=== PATIENT | female | born 1955 | race Caucasian/White ===

== ENCOUNTER 2023-10-22 14:19 | Inpatient (IN) | payer OTHER, MEDICAID ==
[~2023-10-22] VITALS: Ht 162.6 cm; Wt 78.0 kg
[2023-10-22 15:09] LABS: Hemoglobin 12.1 g/dL (12.2-16.2); Monocytes # (auto) 1.8 10 ^3/uL (0-1.3); Red Cell Distribution Width 14.4 % (11.8-14.3); White Blood Cell 22.4 10^3/uL (4.4-10.8)
[2023-10-22 15:10] LABS: Basophils # (auto) 0.1 10 ^3/uL (0-0.2); Basophils % (auto) 0.4 % (0.0-2.0); Eosinophils # (auto) 1.1 10 ^3/uL (0-0.8); Eosinophils % (auto) 4.8 % (0.0-7.0); Lymphocytes # (auto) 0.6 10 ^3/uL (0.4-5.4); Lymphocytes % (auto) 2.9 % (10.0-50.0); Mean Corpuscular Hemoglobin 33.5 pg (28.0-32.0); Monocytes % (auto) 7.9 % (0.0-12.0); Neutrophils # (auto) 18.8 10 ^3/uL (1.6-8.6); Red Blood Cells 3.61 10^6/uL (4.0-5.20)
[2023-10-22 15:12] LABS: Chloride 110 mmol/L (98-107); Potassium 4.7 mmol/L (3.5-5.1); Sodium 132 mmol/L (136-145)
[2023-10-22 15:13] LABS: Anion Gap 11 (5-15); Calcium 8.6 mg/dL (8.5-10.1); Carbon Dioxide 11 mmol/L (20-30)
[2023-10-22 15:18] LABS: BUN/Creatinine Ratio 17.1 (10.0-20.0); Blood Urea Nitrogen 40 mg/dL (9-23); Glucose 219 mg/dL (74-106)
[2023-10-22 15:38] VITALS: PULSE 83; RESP 16; O2SAT 95
[2023-10-22] MEDS ORDERED: DEXTROSE (50%) 50ML SYRG IV PRN (15:45)
[2023-10-22] MEDS ORDERED: DOCUSATE SOD 100 MG CAP PO PRN (15:45)
[2023-10-22] MEDS ORDERED: NITROGLYCERIN 0.4 MG SL TAB SL PRN (15:45)
[2023-10-22] MEDS ORDERED: MORPHINE SULFATE INJ 2 MG/ml SYRG IV PRN (15:45)
[2023-10-22] MEDS ORDERED: ONDANSETRON HCL 4 MG/2 ML VIAL IV PRN (15:45)
[2023-10-22] MEDS: cefTRIAXone 1GM/50ML D5W 50 ML IV ONE (15:53)
[2023-10-22] MEDS: SODIUM CHLORIDE 0.9% 1,000 ML IV ONE ×2 (15:53→16:45)
[2023-10-22] MEDS ORDERED: LISI10TA34 PO (15:59)
[2023-10-22] MEDS ORDERED: EMPA1TAB3 PO (15:59)
[2023-10-22] MEDS ORDERED: ASPI81CH59 PO (15:59)
[2023-10-22] MEDS ORDERED: GABA-1250 PO (15:59)
[2023-10-22] MEDS ORDERED: BUPR-349 PO (15:59)
[2023-10-22] MEDS: VANCOMYCIN 1GM/200ML 200 ML IV ONE (16:14)
[2023-10-22] MEDS ORDERED: hydrALAZINE HCL 20 MG/ML VL IV PRN (16:15)
[2023-10-22 16:41] LABS: Bilirubin, Total 0.3 mg/dL (0.2-1.0)
[2023-10-22] MEDS: ACCU-CHEK COMFORT CURVE STRIP VI SCH (17:26)
[2023-10-22] MEDS: InsuLIN REG 1unit/0.01ml Soln (100units/ml) SC SCH (17:31)
[2023-10-22 17:40] LABS: Urine Bacteria FEW /hpf (None Seen); Urine Blood 1+ /uL (Negative); Urine Budding Yeast FEW /hpf (None Seen); Urine Clarity HAZY (Clear); Urine Color Brown (Yellow); Urine Protein, UAD 1+ (Negative); Urine Urobilinogen Normal (Negative); Urine WBC 494 /hpf (0 - 5); Urine WBC Clumps PRESENT /hpf (None Seen)
[2023-10-22 17:40] LABS: COVID19 ANTIGEN SOFIA FIA NEGATIVE (NEGATIVE)
[2023-10-22] MEDS: ACETAMINOPHEN 325 MG TAB PO PRN (18:16)
[2023-10-22] MEDS: SODIUM CHLORIDE 0.9% 1,000 ML IV SCH (18:17)
[2023-10-22] MEDS: SODIUM CHLORIDE 0.9% 500 ML IV ONE (21:15)
[2023-10-22] MEDS: ALBUMIN 5% 250 ML IV ONE (21:15)
[2023-10-22 22:30] VITALS: PULSE 110; RESP 14; O2SAT 95
[2023-10-22] MEDS: PHENYLEPHRINE IV 250 ML IV SCH (22:59)
[2023-10-23 05:30] LABS: Hemoglobin 12.7 g/dL (12.2-16.2)
[2023-10-23 05:35] LABS: Hematocrit 39.4 % (36.0-46.0); Mean Corpuscular Hemoglobin 33.7 pg (28.0-32.0); Mean Corpuscular Hgb Conc. 32.3 g/dL (32.0-36.0); Mean Corpuscular Volume 104.3 fL (80.0-100.0); Red Blood Cells 3.78 10^6/uL (4.0-5.20); White Blood Cell 28.7 10^3/uL (4.4-10.8)
[2023-10-23 05:46] LABS: Basophils % (manual) 0 (0.0-2.0); Blast Cells 0; Eosinophils % (manual) 0 (0-7); Lymphocytes % (manual) 0 (10.0-50.0); Myelocytes % 0; Promyelocytes % 0; Reactive Lymphocytes 0
[2023-10-23 05:51] LABS: Alanine Aminotransferase 27 U/L (7-40); Albumin 3.6 g/dL (3.2-4.8); Alkaline Phosphatase 230 U/L (46-116); Anion Gap 11.00001 (5-15); Aspartate Aminotransferase 39 U/L (13-40); BUN/Creatinine Ratio 15.9 (10.0-20.0); Calcium 8.6 mg/dL (8.5-10.1); Chloride 119 mmol/L (98-107); Cholesterol 115 mg/dL (< 200); Glucose 91 mg/dL (74-106); HDL Cholesterol 24 mg/dL (40-59); LDL Cholesterol 41 mg/dL (< 100); Potassium 4.1 mmol/L (3.5-5.1); Sodium 140 mmol/L (136-145); Triglycerides 209 mg/dL (< 150)
[2023-10-23 05:52] LABS: Bilirubin, Total 0.4 mg/dL (0.2-1.0); Total Protein 6.1 g/dL (5.7-8.2)
[2023-10-23 06:02] LABS: Blood Urea Nitrogen 28 mg/dL (9-23)
[2023-10-23 06:03] LABS: Carbon Dioxide < 10 mmol/L (20-30)
[2023-10-23] MEDS ORDERED: VANCOMYCIN PER PHARMACY 0 MG IV SCH (06:30)
[2023-10-23] MEDS: VANCOMYCIN 1GM/200ML 200 ML IV ONE (08:09)
[2023-10-23 08:22] LABS: Base Excess -16.5 mmol/L (-2.0-2.0)
[2023-10-23] MEDS: cefTRIAXone 1GM/50ML D5W 50 ML IV SCH (09:07)
[2023-10-23 09:35] LABS: Band Neutrophils % (manual) 40; Metamyelocytes % 1; Monocytes % (manual) 7 (0-12)
[2023-10-23 09:36] LABS: Platelet Estimate Adequate
[2023-10-23] MEDS ORDERED: HYDROCORTISONE SOD SUCC 100 MG/2ML INJ VIAL IV SCH (10:00)
[2023-10-23] MEDS: CEFEPIME 2GM/50ML NS 50 ML IV SCH (10:26)
[2023-10-23] MEDS: SODIUM BICARB 50mEq/50ml Vial 100 ML in D5W 5% 1,000 ML IV SCH (12:25)
[2023-10-23 14:52] LABS: Chloride 117 mmol/L (98-107); Sodium 141 mmol/L (136-145)
[2023-10-23 14:53] LABS: Anion Gap 11 (5-15); Calcium 8.6 mg/dL (8.5-10.1); Carbon Dioxide 13 mmol/L (20-30)
[2023-10-23 14:58] LABS: BUN/Creatinine Ratio 21.1 (10.0-20.0); Blood Urea Nitrogen 31 mg/dL (9-23); Glucose 149 mg/dL (74-106)
[2023-10-23 17:23] VITALS: BP 113/68; PULSE 92; RESP 18; TEMP 98.6; O2SAT 97
[2023-10-23 17:50] VITALS: BP 113/68; PULSE 92; RESP 18; TEMP 98.6; O2SAT 97
[2023-10-23 20:00] VITALS: PULSE 109; PULSE 98; RESP 18; O2SAT 97
[2023-10-23 23:09] VITALS: BP 131/72; PULSE 95; RESP 20; TEMP 98.5; O2SAT 93
[2023-10-24] VITALS (7 sets, daily range): BP systolic 109–131; BP diastolic 61–86; PULSE 80–109; RESP 16–20; TEMP 98–99.5; O2SAT 93–97
[2023-10-24 06:10] LABS: Basophils # (auto) 0 10 ^3/uL (0-0.2); Basophils % (auto) 0.1 % (0.0-2.0); Eosinophils # (auto) 0.2 10 ^3/uL (0-0.8); Hematocrit 35.2 % (36.0-46.0); Hemoglobin 11.5 g/dL (12.2-16.2); Lymphocytes # (auto) 0.8 10 ^3/uL (0.4-5.4); Mean Corpuscular Hemoglobin 32.8 pg (28.0-32.0); Mean Corpuscular Hgb Conc. 32.7 g/dL (32.0-36.0); Mean Corpuscular Volume 100.3 fL (80.0-100.0); Monocytes # (auto) 1.3 10 ^3/uL (0-1.3); Monocytes % (auto) 6.6 % (0.0-12.0); Neutrophils # (auto) 18.1 10 ^3/uL (1.6-8.6); Neutrophils % (auto) 88.3 % (37.0-80.0); Red Blood Cells 3.51 10^6/uL (4.0-5.20); Red Cell Distribution Width 13.9 % (11.8-14.3); White Blood Cell 20.5 10^3/uL (4.4-10.8)
[2023-10-24 06:15] LABS: Chloride 116 mmol/L (98-107); Potassium 3.1 mmol/L (3.5-5.1); Sodium 141 mmol/L (136-145)
[2023-10-24 06:16] LABS: Anion Gap 12 (5-15); Carbon Dioxide 13 mmol/L (20-30)
[2023-10-24 06:17] LABS: Calcium 8.3 mg/dL (8.7-10.4)
[2023-10-24 06:21] LABS: Glucose 190 mg/dL (74-106)
[2023-10-24 06:22] LABS: BUN/Creatinine Ratio 23.8 (10.0-20.0); Blood Urea Nitrogen 29 mg/dL (9-23)
[2023-10-24 11:39] LABS: Magnesium 1.7 mg/dL (1.6-2.6)
[2023-10-24 11:41] LABS: Phosphorus 2.7 mg/dL (2.4-5.1)
[2023-10-24] MEDS: POTASSIUM EFFERVESENT TAB 25 MEQ PO ONE (12:52)
[2023-10-24] MEDS: HYDROcodone-ACET 5/325MG TAB PO PRN (12:52)
[2023-10-25] VITALS (8 sets, daily range): BP systolic 113–143; BP diastolic 69–82; PULSE 60–96; RESP 15–18; TEMP 97.6–98.9; O2SAT 92–97
[2023-10-25 06:30] LABS: Chloride 110 mmol/L (98-107); Potassium 3.4 mmol/L (3.5-5.1); Sodium 137 mmol/L (136-145)
[2023-10-25 06:31] LABS: Anion Gap 10 (5-15); Calcium 7.9 mg/dL (8.7-10.4); Carbon Dioxide 17 mmol/L (20-30)
[2023-10-25 06:36] LABS: BUN/Creatinine Ratio 21.6 (10.0-20.0); Blood Urea Nitrogen 22 mg/dL (9-23); Glucose 309 mg/dL (74-106)
[2023-10-25 06:37] LABS: Basophils # (auto) 0.1 10 ^3/uL (0-0.2); Hemoglobin 11.4 g/dL (12.2-16.2); Magnesium 1.7 mg/dL (1.6-2.6); Monocytes # (auto) 1.7 10 ^3/uL (0-1.3); Monocytes % (auto) 9.9 % (0.0-12.0); White Blood Cell 17.3 10^3/uL (4.4-10.8)
[2023-10-25 06:41] LABS: Basophils % (auto) 0.6 % (0.0-2.0); Eosinophils # (auto) 0.3 10 ^3/uL (0-0.8); Eosinophils % (auto) 1.6 % (0.0-7.0); Lymphocytes # (auto) 1.4 10 ^3/uL (0.4-5.4); Mean Corpuscular Hemoglobin 33.2 pg (28.0-32.0); Mean Corpuscular Hgb Conc. 32.7 g/dL (32.0-36.0); Mean Corpuscular Volume 101.6 fL (80.0-100.0); Neutrophils # (auto) 13.8 10 ^3/uL (1.6-8.6); Neutrophils % (auto) 79.9 % (37.0-80.0); Nucleated Red Blood Cells % 0.2 %; Red Blood Cells 3.44 10^6/uL (4.0-5.20)
[2023-10-25] MEDS: CHOLECALCIFEROL (VITD3) 2,000 UNIT CAP/TAB PO SCH (08:28)
[2023-10-25] MEDS: SODIUM BICARB 50mEq/50ml Vial 100 ML in D5W 5% 1,000 ML IV SCH (09:37)
[2023-10-25] MEDS: POTASSIUM EFFERVESENT TAB 25 MEQ PO ONE (10:30)
[2023-10-25] MEDS ORDERED: DEXTROSE (50%) 50ML SYRG IV PRN (12:00)
[2023-10-25] MEDS: InsuLIN REG 1unit/0.01ml Soln (100units/ml) SC SCH ×2 (17:28→23:00)
[2023-10-25] MEDS: ACCU-CHEK COMFORT CURVE STRIP VI SCH (17:28)
[2023-10-26] VITALS (7 sets, daily range): BP systolic 120–146; BP diastolic 66–88; PULSE 66–76; RESP 18–20; TEMP 97.6–99.1; O2SAT 92–96
[2023-10-26 06:36] LABS: Anion Gap 10 (5-15); Carbon Dioxide 22 mmol/L (20-30); Chloride 110 mmol/L (98-107); Potassium 3.2 mmol/L (3.5-5.1); Sodium 142 mmol/L (136-145)
[2023-10-26 06:38] LABS: Calcium 8.1 mg/dL (8.5-10.1)
[2023-10-26 06:43] LABS: BUN/Creatinine Ratio 29.5 (10.0-20.0); Blood Urea Nitrogen 23 mg/dL (9-23); Glucose 203 mg/dL (74-106)
[2023-10-26 07:00] LABS: Hematocrit 34.5 % (36.0-46.0); Hemoglobin 11.4 g/dL (12.2-16.2); Mean Corpuscular Volume 100.1 fL (80.0-100.0); Red Blood Cells 3.45 10^6/uL (4.0-5.20); Red Cell Distribution Width 13.9 % (11.8-14.3); White Blood Cell 15.2 10^3/uL (4.4-10.8)
[2023-10-26 07:10] LABS: Basophils % (manual) 0 (0.0-2.0); Blast Cells 0; Metamyelocytes % 0; Myelocytes % 0; Promyelocytes % 0; Reactive Lymphocytes 0
[2023-10-26 08:30] LABS: Band Neutrophils % (manual) 3; Eosinophils % (manual) 3 (0-7); Lymphocytes % (manual) 9 (10.0-50.0); Monocytes % (manual) 10 (0-12)
[2023-10-26 08:31] LABS: Macrocytosis Slight; Platelet Estimate Adequate
[2023-10-26] MEDS: POTASSIUM EFFERVESENT TAB 25 MEQ PO ONE (09:58)
[2023-10-26] MEDS: MAGNESIUM SULFATE 1GM/100ML 100 ML IV SCH (09:59)
[2023-10-26] MEDS: INSULIN LANTUS (GLARGINE) 1 /0.01ml (100units/ml) SC SCH (21:37)
[2023-10-27] VITALS (7 sets, daily range): BP systolic 127–144; BP diastolic 77–84; PULSE 63–70; RESP 18; TEMP 97.5–98.4; O2SAT 94–98
[2023-10-27 06:09] LABS: Hematocrit 31.1 % (36.0-46.0); Hemoglobin 10.5 g/dL (12.2-16.2); Mean Corpuscular Hemoglobin 33.7 pg (28.0-32.0); Mean Corpuscular Hgb Conc. 33.9 g/dL (32.0-36.0); Mean Corpuscular Volume 99.4 fL (80.0-100.0); Red Blood Cells 3.13 10^6/uL (4.0-5.20); Red Cell Distribution Width 13.5 % (11.8-14.3); White Blood Cell 12.7 10^3/uL (4.4-10.8)
[2023-10-27 06:15] LABS: Anion Gap 9 (5-15); Carbon Dioxide 22 mmol/L (20-30); Chloride 109 mmol/L (98-107); Potassium 3.8 mmol/L (3.5-5.1); Sodium 140 mmol/L (136-145)
[2023-10-27 06:16] LABS: Band Neutrophils % (manual) 0; Basophils % (manual) 0 (0.0-2.0); Blast Cells 0; Metamyelocytes % 0; Myelocytes % 0; Promyelocytes % 0; Reactive Lymphocytes 0
[2023-10-27 06:21] LABS: BUN/Creatinine Ratio 28.2 (10.0-20.0); Blood Urea Nitrogen 22 mg/dL (9-23); Glucose 192 mg/dL (74-106)
[2023-10-27 07:49] LABS: Eosinophils % (manual) 2 (0-7); Lymphocytes % (manual) 18 (10.0-50.0); Monocytes % (manual) 4 (0-12); Platelet Estimate Adequate
[2023-10-27 07:50] LABS: RBC Morphology Normal
[2023-10-28] VITALS (7 sets, daily range): BP systolic 115–150; BP diastolic 65–83; PULSE 55–81; RESP 16–20; TEMP 97.6–98.7; O2SAT 0–96
[2023-10-28 05:39] LABS: Hematocrit 32.5 % (36.0-46.0); Hemoglobin 10.6 g/dL (12.2-16.2); Mean Corpuscular Hemoglobin 32.6 pg (28.0-32.0); Mean Corpuscular Hgb Conc. 32.5 g/dL (32.0-36.0); Mean Corpuscular Volume 100.1 fL (80.0-100.0); Red Blood Cells 3.25 10^6/uL (4.0-5.20); Red Cell Distribution Width 13.6 % (11.8-14.3); White Blood Cell 12.3 10^3/uL (4.4-10.8)
[2023-10-28 05:49] LABS: Basophils % (manual) 0 (0.0-2.0); Blast Cells 0; Metamyelocytes % 0; Myelocytes % 0; Promyelocytes % 0; Reactive Lymphocytes 0
[2023-10-28 05:54] LABS: Chloride 110 mmol/L (98-107); Potassium 3.6 mmol/L (3.5-5.1); Sodium 140 mmol/L (136-145)
[2023-10-28 05:55] LABS: Anion Gap 7 (5-15); Calcium 7.5 mg/dL (8.7-10.4); Carbon Dioxide 23 mmol/L (20-30)
[2023-10-28 06:00] LABS: BUN/Creatinine Ratio 20.2 (10.0-20.0); Blood Urea Nitrogen 17 mg/dL (9-23); Glucose 228 mg/dL (74-106)
[2023-10-28 08:10] LABS: Band Neutrophils % (manual) 3; Eosinophils % (manual) 1 (0-7); Lymphocytes % (manual) 12 (10.0-50.0); Monocytes % (manual) 7 (0-12)
[2023-10-28 08:11] LABS: Macrocytosis Slight; Platelet Estimate Adequate
[2023-10-28] MEDS: buPROPion HCL 100 MG TAB PO SCH (10:04)
[2023-10-28] MEDS: INSULIN LANTUS (GLARGINE) 1 /0.01ml (100units/ml) SC SCH (17:25)
[2023-10-29 04:00] VITALS: BP 131/77; PULSE 60; RESP 20; TEMP 98.1; O2SAT 95
[2023-10-29 08:00] VITALS: RESP 18; O2SAT 0
[2023-10-29 09:00] VITALS: BP_SYST 118; BP_SYST 134; BP_DIAS 62; BP_DIAS 73; PULSE 62; PULSE 94; RESP 16; RESP 18; RESP 90; TEMP 98.4; TEMP 98.5; TEMP 98.6; O2SAT 90; O2SAT 93
[2023-10-29 13:00] VITALS: BP 136/77; PULSE 60; RESP 18; TEMP 98.7; O2SAT 97
[2023-10-29] MEDS ORDERED: INSLANTI SC ×2 (14:41→16:22)
[2023-10-29] MEDS ORDERED: CIPR250T3 PO ×2 (14:41→16:22)
[2023-10-29 17:00] VITALS: BP 146/82; PULSE 60; RESP 18; TEMP 98.6; O2SAT 97
== END 2023-10-29 18:15 | disposition home or self-care (01) | DRG 871 ==
LOC: ER 14:19 → TELE 15:59 → TELE-EAST 10-23 17:37 → EAST 10-26 01:01
PROVIDERS: ADMIT Nurse Practitioner Family; ATTEND Nurse Practitioner Acute Care
DX: A41.9 Sepsis, unspecified organism (principal); N17.0 Acute kidney failure with tubular necrosis; R65.21 Severe sepsis with septic shock; E87.20 Acidosis, unspecified; F32.A Depression, unspecified; E11.40 Type 2 diabetes mellitus with diabetic neuropathy, unspecified; Z96.642 Presence of left artificial hip joint; Z20.822 Contact with and (suspected) exposure to COVID-19; E11.65 Type 2 diabetes mellitus with hyperglycemia; K52.9 Noninfective gastroenteritis and colitis, unspecified; E86.0 Dehydration; I12.9 Hypertensive chronic kidney disease with stage 1 through stage 4 chronic kidney disease, or unspecified chronic kidney disease; E11.22 Type 2 diabetes mellitus with diabetic chronic kidney disease; N18.9 Chronic kidney disease, unspecified; N30.90 Cystitis, unspecified without hematuria; E11.649 Type 2 diabetes mellitus with hypoglycemia without coma; E78.5 Hyperlipidemia, unspecified; E55.9 Vitamin D deficiency, unspecified; E87.6 Hypokalemia; B96.20 Unspecified Escherichia coli [E. coli] as the cause of diseases classified elsewhere; D64.9 Anemia, unspecified; Z83.3 Family history of diabetes mellitus; Z79.4 Long term (current) use of insulin
CPT/HCPCS: 36415; 36600; 70450; 71046; 76775; 80048; 80053; 80061; 80202; 81001; 82247; 82306; 82805; 82962; 83036; 83605; 83735; 83935; 83970; 84075; 84100; 84300; 84443; 84450; 84460; 85007; 85025; 85027; 87040; 87045; 87077; 87086; 87177; 87186; 87426; 93005; 96365; 97110; 97116; 97163; 97530; G0378; J0692; J1815

== ENCOUNTER 2024-07-07 17:07 | Inpatient (IN) | payer OTHER, MEDICAID ==
[~2024-07-07] VITALS: Ht 162.6 cm; Wt 63.3 kg
[~2024-07-07 17:07] MED LIST: ASPI81CH59 PO; BUPR-349 PO; CIPR250T3 PO; EMPA1TAB3 PO; GABA-1250 PO; INSLANTI SC; LISI10TA34 PO
--- NOTE | 2024-07-07 17:21 | ECG ---
[facility] Test Date: 2024-07-07 Test Time: 17:16:12 Pat Name: UMU YEUNG Department: ER Room: 0284T Gender: F Shade Cutter: MARILEE : 1955 Requested By: MARLO PALACIOS Order Number: [id number] Reading MD: Duke Marquez Measurements Intervals [place] Rate: 94 P: 56 CT: 165 QRS: 57 QRSD: 84 T: -12 QT: 353 QTc: 442 Interpretive Statements Sinus rhythm Borderline T abnormalities, diffuse leads Electronically Signed On 07-11-2024 11:14:55 PST by Duke Marquez Please click the below link to view image of tracing.
--- NOTE | 2024-07-07 17:37 | ED.PDOC ---
HPI (NEURO) HPI Comments 68y F who presents to the ED for chief complaint of dizziness. Pt states she has been having dizziness with associated generalized weakness for the past 2 days. Pt states she has had multiple falls after getting dizzy from sitting to standing position. Pt denies having any loss of consciousness and is alert and oriented x 4 and able to answer all questions at this time. Pt states she has also been having cramping pain radiating from neck to her lower back and down her bilateral legs. Pt states she has these symptoms 1 years prior and states was diagnosed with UTI and treated. Pt has noted stable vitals in the ED but has noted Accu check of 216 in the ED. Pt denies any other symptoms at this time. Chief Complaint: Dizziness Time Seen by MD: 17:33 Primary Care Provider: ALFRED Reviewed Notes: Medications, Allergies Information Source: Patient Mode of Arrival: Wheelchair Brought in by: self Severity: Moderate Dizziness/Weakness Severity: Does not affect activitie Headache Severity: None Timing: Hours Duration: Since onset Prehospital treatment: None Weakness Location: Generalized Onset: At rest Circumstances: Spontaneous Symptoms: None History of: DM, Hypertension Modifying factors: Change in position Associated Signs and Symptoms: Weakness Past Medical History PAST MEDICAL HISTORY: Arthritis, DM, HTN Surgical History: Tubal Ligation CAMPUS COORDINATOR History: Denies all CAMPUS COORDINATOR Hx Family History Family History: Family hx of DM Social History Smoker: Non-Smoker Alcohol: Denies ETOH Use Drugs: Denies Drug Use Lives In: Home Constitutional: denies: chills, diaphoresis, fatigue, fever, malaise, sweats, weakness, others EENTM: denies: blurred vision, double vision, ear bleeding, ear discharge, ear drainage, ear pain, ear ringing, eye pain, eye redness, hearing loss, mouth pain, mouth swelling, nasal discharge, nose bleeding, nose congestion, nose pain, photophobia, tearing, throat pain, throat swelling, voice changes, others Respiratory: denies: cough, hemoptysis, orthopnea, SOB at rest, shortness of breath, SOB with excertion, stridor, wheezing, others Cardiovascular: denies: chest pain, dizzy spells, diaphoresis, Dyspnea on exertion, edema, irregular heart beat, left arm pain, lightheadedness, palpitations, PND, syncope, others Gastrointestinal: denies: abdomen distended, abdominal pain, blood streaked bowels, constipated, diarrhea, dysphagia, difficulty swallowing, hematemesis, melena, nausea, poor appetite, poor fluid intake, rectal bleeding, rectal pain, vomiting, others Genitourinary: denies: abnormal vagina bleeding, burning, dyspareunia, dysuria, flank pain, frequency, hematuria, incontinence, pain, , vagina discharge, urgency, others Neurological: reports: dizziness, weakness; denies: fainting, headache, left sided numbness, left sided weakness, numbness, paresthesia, pre-existing defic it, right sided numbness, right sided weakness, seizure, speech problems, tingling, tremors, others Musculoskeletal: denies: back pain, gout, joint pain, joint swelling, muscle pain, muscle stiffness, neck pain, others Integumetry: denies: bruises, change in color, change in hair/nails, dryness, laceration, lesions, lumps, rash, wounds, others Allergic/Immunocompromised: denies: Difficulty Healing, Frequent Infections, Hives, Itching, others Hematologic/Lymphatic: denies: anemia, blood clots, easy bleeding, easy bruising, swollen glands, others Psychiatric: denies: anxiety, bipolar disorder, depression, hopeless, panic disorder, schizophrenia, sleepless, suicidal, others All Other Systems: Reviewed and Negative Physical Exam General Appearance: Moderate Distress HEENT: Normal ENT Inspection, Pharynx Normal, TMs Normal Neck: Full Range of Motion, Non-Tender, Normal, Normal Inspection Respiratory: Chest Non-Tender, Lungs Clear, No Accessory Muscle Use, No Respiratory Distress, Normal Breath Sounds Cardiovascular: No Edema, No JVD, No Murmur, No Gallop, Normal Peripheral Pulses, Regular Rate/Rhythm Breast Exam: Deferred Gastrointestinal: No Organomegaly, Non Tender, No Pulsatile Mass, Normal Bowel Sounds, Soft Genitalia: Deferred Pelvic: Deferred Rectal: Deferred Extremities: No calf tenderness, Normal capillary refill, Normal inspection, Normal range of motion, Non-tender, No pedal edema Musculoskeletal : Apperance: Normal Neurologic: Alert, logistics/shipper II-XII nml as Tested, No Motor Deficits, Normal Affect, Normal Mood, No Sensory Deficits Cerebellar Function: Normal Reflexes: Normal Skin: Dry, Normal Color, Warm Lymphatic: No Adenopathy Was a procedure done? Was a procedure done?: No Differential Diagnosis (SZ) Seizure: N/A General Weakness: Anemia, Dehydration, Electrolyte imbalance, Hypoglycemia, Hypotension, TIA, Vertigo: central, Vertigo: peripheral, Vestibular neuronitis, Other (vasovagal syncope, ) X-Ray, Labs, Meds, VS Vital Signs Date Time Temp Pulse Resp B/P (MAP) Pulse Ox O2 Delivery O2 Flow Rate FiO2 07/07/24 20:19 91 15 98/70 (79) 98 07/07/24 18:13 98.6 93 16 92/61 (71) 96 98.6 07/07/24 18:13 90 16 95 Room Air* 0 21 07/07/24 17:21 97.7 92 18 94/61 (72) 93 07/07/24 17:16 94 Lab Test 07/07/24 19:27 07/07/24 17:38 07/07/24 17:18 Range/Units Troponin I High Sensitivity 89 *H 99 *H </=34 ng/L White Blood Count 7.9 4.4-10.8 10^3/uL Red Blood Count 4.00 4.0-5.20 10^6/uL Hemoglobin 13.5 12.2-16.2 g/dL Hematocrit 40.6 36.0-46.0 % Mean Corpuscular Volume 101.6 H 80.0-100.0 fL Mean Corpuscular Hemoglobin 33.8 H 28.0-32.0 pg Mean Corpuscular Hemoglobin Concent 33.2 32.0-36.0 g/dL Red Cell Distribution Width 13.7 11.8-14.3 % Platelet Count 241 140-450 10^3/uL Mean Platelet Volume 8.3 6.9-10.8 fL Neutrophils (%) (Auto) 81.8 H 37.0-80.0 % Lymphocytes (%) (Auto) 9.9 L 10.0-50.0 % Monocytes (%) (Auto) 7.7 0.0-12.0 % Eosinophils (%) (Auto) 0.3 0.0-7.0 % Basophils (%) (Auto) 0.3 0.0-2.0 % Neutrophils # (Auto) 6.4 1.6-8.6 10 ^3/uL Lymphocytes # (Auto) 0.8 0.4-5.4 10 ^3/uL Monocytes # (Auto) 0.6 0-1.3 10 ^3/uL Eosinophils # (Auto) 0 0-0.8 10 ^3/uL Basophils # (Auto) 0 0-0.2 10 ^3/uL Nucleated Red Blood Cells 0.0 % Sodium Level 137 136-145 mmol/L Potassium Level 3.2 L 3.5-5.1 mmol/L Chloride Level 110 H 98-107 mmol/L Carbon Dioxide Level 18 L 20-31 mmol/L Anion Gap 9 5-15 Blood Urea Nitrogen 20 9-23 mg/dL Creatinine 1.13 H 0.550-1.02 mg/dL Glomerular Filtration Rate Calc 53 >90 mL/min BUN/Creatinine Ratio 17.7 10.0-20.0 Serum Glucose 225 H 74-106 mg/dL Calcium Level 9.3 8.7-10.4 mg/dL POC Glucose 216 H 70-106 mg/dl Current Medications Medications (Trade) Dose Ordered Sig/Christiano Route Start Time Stop Time Status Last Admin Sodium Chloride 500 ml @ 500 mls/hr Q1H ONCE IV 07/07/24 17:30 07/07/24 18:29 DC 07/07/24 18:27 IV Hep-Lock was established The patient was given a 500 cc bolus of normal saline The CBC and chemistry panel are within normal limits except for hypokalemia at 3.2 The patient was being placed on potassium IV piggyback The patient was being admitted at this time. The patient's troponin level was 99 and then went down to 89 on the 2nd troponin The patient was being admitted at this time Time of 1ST Reevaluation: 18:10 Reevaluation 1ST: Unchanged Patient Education/Counseling: Diagnosis, Treatment, Prognosis Family Education/Counseling: No Family Present Departure 1 Departure Time of Disposition: 19:39 Impression: Primary Impression: Dizziness Additional Impressions: Hypokalemia Generalized weakness Elevated troponin Disposition: ADMITTED INPATIENT Admit to: Tele Condition: Fair Critical Care Note Critical Care Time?: Yes (45 min-critical care time only) Stability Stability form required: Yes Unstable for transfer: Telemetry monitoring (Telemetry monitoring required), ED Physician Assesment (Clinical assesment) Heart Score Heart Score: Heart Score Response (Comments) Value History N/A 0 EKG N/A 0 Age N/A 0 Risk Factors N/A 0 Troponin N/A 0 Total 0 I personally scribed for MARLO PALACIOS MD ([email or web address]) on 07/07/24 at 17:37. Electronically submitted by Des Galvin ([email or web address]). MARLO PALACIOS MD Jul 07, 2024 17:37
[2024-07-07 17:55] LABS: Basophils # (auto) 0 10 ^3/uL (0-0.2); Eosinophils # (auto) 0 10 ^3/uL (0-0.8); Hemoglobin 13.5 g/dL (12.2-16.2); Lymphocytes # (auto) 0.8 10 ^3/uL (0.4-5.4); Monocytes # (auto) 0.6 10 ^3/uL (0-1.3)
[2024-07-07 17:57] LABS: Basophils % (auto) 0.3 % (0.0-2.0); Eosinophils % (auto) 0.3 % (0.0-7.0); Hematocrit 40.6 % (36.0-46.0); Lymphocytes % (auto) 9.9 % (10.0-50.0); Mean Corpuscular Hemoglobin 33.8 pg (28.0-32.0); Mean Corpuscular Hgb Conc. 33.2 g/dL (32.0-36.0); Mean Corpuscular Volume 101.6 fL (80.0-100.0); Monocytes % (auto) 7.7 % (0.0-12.0); Neutrophils # (auto) 6.4 10 ^3/uL (1.6-8.6); Neutrophils % (auto) 81.8 % (37.0-80.0); Platelet Count (auto) 241 10^3/uL (140-450); Red Cell Distribution Width 13.7 % (11.8-14.3); White Blood Cell 7.9 10^3/uL (4.4-10.8)
[2024-07-07 18:02] LABS: Chloride 110 mmol/L (98-107); Potassium 3.2 mmol/L (3.5-5.1); Sodium 137 mmol/L (136-145)
[2024-07-07 18:03] LABS: Anion Gap 9 (5-15); Calcium 9.3 mg/dL (8.7-10.4); Carbon Dioxide 18 mmol/L (20-31)
[2024-07-07 18:08] LABS: Glucose 225 mg/dL (74-106)
[2024-07-07 18:09] LABS: BUN/Creatinine Ratio 17.7 (10.0-20.0); Blood Urea Nitrogen 20 mg/dL (9-23)
[2024-07-07 18:13] VITALS: PULSE 90; RESP 16; O2SAT 95
[2024-07-07] MEDS: SODIUM CHLORIDE 0.9% 500 ML IV ONE (18:27)
[2024-07-07] MEDS: POTASSIUM CHL 20MEQ/100ML 100 ML IV ONE (19:45)
[2024-07-07] MEDS ORDERED: ACETAMINOPHEN 325 MG TAB PO PRN (21:15)
[2024-07-07] MEDS ORDERED: MORPHINE SULFATE INJ 2 MG/ml SYRG IV PRN (21:15)
[2024-07-07] MEDS ORDERED: ONDANSETRON HCL 4 MG/2 ML VIAL IV PRN (21:15)
[2024-07-07] MEDS ORDERED: NITROGLYCERIN 0.4 MG SL TAB SL PRN (21:15)
[2024-07-07 21:32] VITALS: PULSE 87; RESP 18; O2SAT 95
--- NOTE | 2024-07-07 21:57 | DVHHPRES ---
History of Present Illness Resident Creating Document: JULITA ADORNO RESIDENT History of Present Illness This is a 68-year-old female with past medical history of hypertension, type 2 diabetes mellitus, peripheral neuropathy presented to the ED with a chief complaint of dizziness and generalized weakness for last 2 days prior to this admission. Patient states she has had multiple falls after getting dizzy from sitting to standing position associated with nausea but denies loss of consciousness or any any trauma to the head or injury. She denies any dizziness with change in the position and also mentioned she has been having cramping pain from head down to the bilateral legs for the same duration. She also mentioned she had this symptoms 1 year prior and admitted with the hospital and later diagnosed with UTI. Patient denies chest pain, shortness of breath, diaphoresis, abdominal pain, vomiting or any change in bowel and bladder habit. PCP: Dr. Russ Past Medical History Hypertension, peripheral neuropathy, type 2 diabetes mellitus, arthritis Past Surgical History Tubal Ligation Family History Type 2 diabetes mellitus runs in the family Smoke: No ALCOHOL: none Drugs: None Lives: with Family Past Social History Smoker, nonalcoholic, and never tried any drugs Lives with son Review of Systems Constitutional: No: Fever, Chills, Sweats, Weakness, Malaise, Other Eyes: No: Pain, Vision change, Conjunctivae inflammation, Eyelid inflammation, Other, Redness ENT: No: Ear pain, Ear discharge, Nose pain, Nose discharge, Nose congestion, Mouth pain, Mouth swelling, Throat pain, Throat swelling, Other Respiratory: No: Cough, Dry, Shortness of breath, SOB with excertion, Wheezing, Hemoptysis, Pleuritic Pain, Sputum, Wheezing, Other Cardiovascular: Lt Headedness; No: Chest Pain, Palpitations, Orthopnea, Paroxysmal Noc. Dyspnea, Edema, Other Gastrointestinal: Nausea; No: Vomiting, Abdominal Pain, Diarrhea, Constipation, Melena, Hematochezia, Other Genitourinary: No Dysuria, No Frequency, No Incontinence, No Hematuria, No Retention, No Other Musculoskeletal: No: other, neck pain, shoulder pain, arm pain, back pain, hand pain, leg pain, foot pain Skin: No: Rash, Lesions, Jaundice, Bruising, Other Neurological: No: Weakness, Numbness, Incoordination, Change in speech, Confusion, Seizures, Other Allergies: Coded Allergies: NO KNOWN ALLERGIES (Unverified , 10/22/23) Medications Current Medications Medications Dose Ordered Sig/Christiano Route Start Time Stop Time Status Last Admin Dose Admin Sodium Chloride 10 ml Q8HR IV 07/07/24 22:00 Sodium Chloride 1,000 ml @ 75 mls/hr [id number] IV 07/07/24 21:15 Acetaminophen 325 mg Q4HP PRN PO 07/07/24 21:15 Ondansetron HCl 4 mg Q4HP PRN IV 07/07/24 21:15 Enoxaparin Sodium 40 mg DAILY SC 07/08/24 10:00 Nitroglycerin 0.4 mg Q5MINP PRN SL 07/07/24 21:15 Morphine Sulfate 2 mg Q30M PRN IV 07/07/24 21:15 Exam Vital Signs Vital Signs Date Time Temp Pulse Resp B/P (MAP) Pulse Ox O2 Delivery O2 Flow Rate FiO2 07/07/24 20:19 91 15 98/70 (79) 98 07/07/24 18:13 98.6 98.6 07/07/24 18:13 Room Air* 0 21 Exam Physical examination: General Appearance: Alert, Oriented X3, Cooperative, mild distress HEENT: Atraumatic, PERRLA, EOMI, Mucous membrane moist/pink Respiratory: Clear to auscultation, Normal air movement Cardiovascular: Regular rate, Normal S1, Normal S2, No murmurs, no chest wall tenderness Abdominal: Normal bowel sounds, Soft, No tenderness, No hepatospenomegaly, No masses Extremities: No clubbing, No cyanosis, No edema, Normal pulses, No tenderness/swelling Skin: No rashes, No breakdown, No significant lesion Neuro: Normal gait, Normal speech, Strength at 5/5 X4 ext, Normal tone, Sensation intact, grossly intact cranial nerves. Psych/Mental Status: Mental status NL, Mood NL Labs/Xrays Labs Test 07/07/24 21:51 07/07/24 17:38 07/07/24 17:18 Range/Units White Blood Count 7.9 4.4-10.8 10^3/uL Red Blood Count 4.00 4.0-5.20 10^6/uL Hemoglobin 13.5 12.2-16.2 g/dL Hematocrit 40.6 36.0-46.0 % Mean Corpuscular Volume 101.6 H 80.0-100.0 fL Mean Corpuscular Hemoglobin 33.8 H 28.0-32.0 pg Mean Corpuscular Hemoglobin Concent 33.2 32.0-36.0 g/dL Red Cell Distribution Width 13.7 11.8-14.3 % Platelet Count 241 140-450 10^3/uL Mean Platelet Volume 8.3 6.9-10.8 fL Neutrophils (%) (Auto) 81.8 H 37.0-80.0 % Lymphocytes (%) (Auto) 9.9 L 10.0-50.0 % Monocytes (%) (Auto) 7.7 0.0-12.0 % Eosinophils (%) (Auto) 0.3 0.0-7.0 % Basophils (%) (Auto) 0.3 0.0-2.0 % Neutrophils # (Auto) 6.4 1.6-8.6 10 ^3/uL Lymphocytes # (Auto) 0.8 0.4-5.4 10 ^3/uL Monocytes # (Auto) 0.6 0-1.3 10 ^3/uL Eosinophils # (Auto) 0 0-0.8 10 ^3/uL Basophils # (Auto) 0 0-0.2 10 ^3/uL Nucleated Red Blood Cells 0.0 % Sodium Level 137 136-145 mmol/L Potassium Level 3.2 L 3.5-5.1 mmol/L Chloride Level 110 H 98-107 mmol/L Carbon Dioxide Level 18 L 20-31 mmol/L Anion Gap 9 5-15 Blood Urea Nitrogen 20 9-23 mg/dL Creatinine 1.13 H 0.550-1.02 mg/dL Glomerular Filtration Rate Calc 53 >90 mL/min BUN/Creatinine Ratio 17.7 10.0-20.0 Serum Glucose 225 H 74-106 mg/dL Calcium Level 9.3 8.7-10.4 mg/dL POC Glucose 216 H 70-106 mg/dl Assessment/Plan Assessment/Plan Assessment and plan: # Dizziness likely due to hypotension, rule out arrhythmia - Admitted the patient in telemetry - IV normal saline at 75 mL/hour - Ordered echo, carotid duplex, B12 and TSH - Monitor the blood pressure closely # HERACLIO secondary to hemodynamically mediated/VMN - IV normal saline at 75 mL/hour - Monitor BMP # Acute complicated cystitis - History of recurrent UTI - IV ceftriaxone 1 g daily - Ordered urine C/S # NSTEMI type 2 secondary to above - Troponin trends are 99>89>93 # Hypokalemia - Replenished # Possible subclinical hyperthyroidism - Ordered free T3 and T4 # Type 2 diabetes mellitus - Moderate sliding scale of insulin # DVT prophylaxis - Lovenox 40 mg sc daily Goal of care discussed with the patient for more than 20 minutes full code Plan of treatment discussed with Dr. Randall Plan discussed with: Patient, Other My Orders Orders - JULITA ADORNO RESIDENT Procedure Category Date Status Time Admit ADMIT 07/07/24 Transmitted 21:01 Code Status CODE 07/07/24 Transmitted 21:01 Sodium Chloride Lock PHA 07/07/24 In Process (Saline Lock Ns) 22:00 Sodium Chloride 0.9% PHA 07/07/24 In Process 21:15 Oxygen Per Hour RT 07/07/24 Transmitted 21:01 Acetaminophen Tablet PHA 07/07/24 In Process (Tylenol Tablet) 21:15 Ondansetron Hcl PHA 07/07/24 In Process (Zofran) 21:15 Enoxaparin Sodium PHA 07/08/24 In Process (Lovenox) 10:00 Complete Blood Count LAB 07/08/24 Verified 04:00 Comprehensive LAB 07/08/24 Verified Metabolic Panel 04:00 Cardiac DIET 07/08/24 Transmitted Diet-2gna,Lofat,Lochol Breakfast Echo 2d Mode Cardiac US 07/07/24 Logged DOP 21:01 Nitroglycerin PHA 07/07/24 In Process Sublingual (Ntrostat 21:15 Morphine Sulfate PHA 07/07/24 In Process Injection 21:15 Oxygen By Nasal RT 07/07/24 Transmitted Cannula 21:01 Stat Ekg For Chest BARBARA 07/07/24 In Process Pain 21:01 Notify Of Changes BARBARA 07/07/24 In Process From Base 21:01 Acupressurist For BARBARA 07/07/24 In Process 24 Hours 21:01 Emergency Dysrhythmia BARBARA 07/07/24 In Process Protocol 21:01 Rhythm Strips Once BARBARA 07/07/24 In Process Every Shift 21:01 Hemoglobin A1c LAB 07/07/24 Logged 21:44 Thyroid Stimulating LAB 07/07/24 In Process Hormone 21:44 Vitamin B12 LAB 07/07/24 Logged 21:44 Drug Screen LAB 07/07/24 Logged 21:44 Date of Service: Jul 07, 2024 Billing Provider: ETHAN RANDALL MD Common Visit Codes: [id number] INP/OBS CARE (HIGH) Secondary Visit Codes: [id number] CARE PLAN 30 MINUTES JULITA ADORNO RESIDENT Jul 07, 2024 21:57 ETHAN RANDALL MD Jul 09, 2024 09:29
[2024-07-07] MEDS: SODIUM CHLORIDE 0.9% 1,000 ML IV SCH (22:00)
[2024-07-07] MEDS: SODIUM CHLOR 0.9% PF (SALINE LOCK) 10ML VIAL/SYR IV SCH (22:15)
[2024-07-07] MEDS: POTASSIUM CHL 20 Meq TABLET PO ONE (22:19)
[2024-07-07 23:20] VITALS: BP 101/60; PULSE 77; RESP 16; TEMP 97.5; O2SAT 99
[2024-07-07] MEDS ORDERED: DEXTROSE (50%) 50ML SYRG IV PRN (23:30)
[2024-07-08] MEDS ORDERED: MECL-90 PO (01:17)
[2024-07-08] MEDS ORDERED: METF-370 PO (01:17)
[2024-07-08 01:57] LABS: Amphetamine Screen, Urine Neg (NEGATIVE); Barbiturate Scree,Urine Neg (NEGATIVE); Benzodiazephine Screen, Urine Neg (NEGATIVE); Urine Bacteria FEW /hpf (None Seen); Urine Blood Negative /uL (Negative); Urine Clarity Turbid (Clear); Urine Color Colorless (Yellow); Urine Protein, UAD TRACE (Negative); Urine Specific Gravity 1.006 (1.001-1.035); Urine Urobilinogen Normal (Negative); Urine WBC 96 /hpf (0 - 5); Urine pH 5.5 (5.0-9.0)
[2024-07-08 01:58] LABS: Cocaine Screen, Urine Neg (NEGATIVE); Opiate Scree,Urine Neg (NEGATIVE)
[2024-07-08 01:59] LABS: Cannabinoid Screen, Urine Neg (NEGATIVE); Phencyclidine Screen, Urine Neg (NEGATIVE)
[2024-07-08 05:00] VITALS: BP 81/48; PULSE 86; RESP 16; TEMP 98.8; O2SAT 92
[2024-07-08] MEDS: cefTRIAXone 1GM/50ML D5W 50 ML IV ONE (05:23)
[2024-07-08] MEDS: ACCU-CHEK COMFORT CURVE STRIP VI SCH (05:37)
[2024-07-08] MEDS: InsuLIN REG 1unit/0.01ml Soln (100units/ml) SC SCH ×2 (05:37→16:56)
[2024-07-08 06:27] LABS: Basophils # (auto) 0 10 ^3/uL (0-0.2); Eosinophils # (auto) 0 10 ^3/uL (0-0.8); Lymphocytes # (auto) 1.2 10 ^3/uL (0.4-5.4); Mean Corpuscular Volume 106.8 fL (80.0-100.0)
[2024-07-08 06:30] LABS: Basophils % (auto) 0.3 % (0.0-2.0); Eosinophils % (auto) 0.1 % (0.0-7.0); Hematocrit 42.3 % (36.0-46.0); Hemoglobin 13.4 g/dL (12.2-16.2); Lymphocytes % (auto) 13.9 % (10.0-50.0); Mean Corpuscular Hemoglobin 33.9 pg (28.0-32.0); Mean Corpuscular Hgb Conc. 31.7 g/dL (32.0-36.0); Monocytes # (auto) 0.6 10 ^3/uL (0-1.3); Monocytes % (auto) 6.8 % (0.0-12.0); Neutrophils % (auto) 78.9 % (37.0-80.0); Platelet Count (auto) 210 10^3/uL (140-450); Red Blood Cells 3.96 10^6/uL (4.0-5.20); Red Cell Distribution Width 14.6 % (11.8-14.3); White Blood Cell 8.9 10^3/uL (4.4-10.8)
[2024-07-08 06:40] LABS: Alanine Aminotransferase 23 U/L (7-40); Albumin 4.3 g/dL (3.2-4.8); Alkaline Phosphatase 72 U/L (46-116); Anion Gap 10 (5-15); Aspartate Aminotransferase 12 U/L (13-40); BUN/Creatinine Ratio 16.9 (10.0-20.0); Bilirubin, Total 0.4 mg/dL (0.2-1.0); Blood Urea Nitrogen 15 mg/dL (9-23); Calcium 9.1 mg/dL (8.7-10.4); Carbon Dioxide 17 mmol/L (20-31); Chloride 116 mmol/L (98-107); Sodium 143 mmol/L (136-145); Total Protein 7.3 g/dL (5.7-8.2)
[2024-07-08 06:56] LABS: Glucose 47 mg/dL (74-106)
--- NOTE | 2024-07-08 07:10 | DVH ---
CHEST RADIOGRAPH Indication: Dizziness Technique: Single frontal view of the chest was obtained Comparison: None FINDINGS: Lines and Tubes: None Lungs: No focal consolidation. Pleura: No effusion. No pneumothorax. Cardiomediastinal contours: Unremarkable Bones: No acute osseous abnormality. IMPRESSION: 1. No acute cardiopulmonary disease.
[2024-07-08 08:00] VITALS: BP_SYST 115; BP_SYST 126; BP_DIAS 59; BP_DIAS 71; BP_DIAS 76; PULSE 72; PULSE 73; RESP 18; TEMP 98.6; O2SAT 97
[2024-07-08 08:56] LABS: Erythrocyte Sedimentation Rate 15 mm/hr (0-20)
[2024-07-08] MEDS: ENOXAPARIN SOD 40 MG/0.4 ML SYRINGE SC SCH (09:11)
[2024-07-08] MEDS: POTASSIUM EFFERVESENT TAB 25 MEQ PO ONE (09:12)
--- NOTE | 2024-07-08 09:57 | DVH ---
CAROTID ARTERIAL DOPPLER CLINICAL HISTORY: DIZZINESS TECHNIQUE: Doppler study of bilateral carotid/vertebral arteries were performed. Comparison: None FINDINGS: Bilateral internal carotid arteries demonstrate tortuous . coarse with calcified atherosclerotic medina ges. There are elevated peak systolic velocities in the bilateral internal carotid arteries. The bila teral common carotid, external carotid arteries appear patent without hemodynamically significant st enosis. The spectral wave forms and peak systolic velocities are within normal limits. Antegrade flow is present within the vertebral arteries with appropriate velocities and waveforms. Right ICA/CCA PSV ratio = 2.0. Left ICA/CCA PSV ratio = 0.3 . IMPRESSION: 1. Tortuous internal carotid arteries with calcified atherosclerotic changes. There are elevated pea k systolic velocities in the bilateral iCAs. Further evaluation with CTA neck is recommended. HS:Y
[2024-07-08 10:49] LABS: Free T3 2.16 pg/mL (2.3-4.2)
[2024-07-08 10:51] LABS: Free T4 (Free Thyroxine) 0.99 ng/dL (0.89-1.76)
[2024-07-08 12:00] VITALS: BP_SYST 100; BP_SYST 102; BP_SYST 104; BP_DIAS 56; BP_DIAS 58; BP_DIAS 62; PULSE 63; RESP 18; TEMP 101.5; O2SAT 94
--- NOTE | 2024-07-08 12:52 | DVHPNRES ---
Progress Note Date Seen: Jul 08, 2024 Resident Creating Document: SAJAN RHODES RESIDENT Medical Necessity Reason Pt with a Central, PICC or Fol: No Subjective Review of Systems Patient is a 68-year-old female with past medical history of UTI, diabetes, hypertension and peripheral neuropathy, who came in due to generalized weakness along with dizziness that has been ongoing for the last 2 days. According to the patient, yesterday on 07/07/2024 she was in the restroom when she started feeling extreme weakness in bilateral upper and lower extremities along with weakness and dizziness which prevented her from getting up. Patient subsequently had to call her son to help her get up and get out of the bathroom. Patient notes that cold makes her pain worse which is intermittent in nature and cramping in character. Past surgical history: Denies Home medications: Aspirin, bupropion, Jardiance, gabapentin, insulin Lantus, lisinopril, meclizine, metformin Past Hospitalization: In October 2023 for similar symptoms of generalized weakness Social & Personal history: Patient lives with her son. Denies using tobacco, alcohol, drugs. Allergies: Denies Patient seen and examined at bedside. Patient is alert and oriented to time, place person and responding to all questions. Eyes: No Pain, No Vision change, No Conjunctivae inflammation, No Eyelid inflammation, No Other, No Redness ENT: No Ear pain, No Ear discharge, No Nose pain, No Nose discharge, No Nose congestion, No Mouth pain, No Mouth swelling, No Throat pain, No Throat swelling, No Other Cardiovascular: No Chest Pain, No Palpitations, No Orthopnea, No Paroxysmal No Dyspnea, No Edema, No Lt Headedness, No Other Respiratory: No Cough, No Dry, No Shortness of breath, No SOB with exertion, No Wheezing, No Hemoptysis, No Pleuritic Pain, No Sputum, No Other Gastrointestinal: No Nausea, No Vomiting, No Abdominal Pain, No Diarrhea, No Constipation, No Melena, No Hematochezia, No Other Genitourinary: No Dysuria, No Frequency, No Incontinence, No Hematuria, No Retention, No Other Musculoskeletal: No other, No neck pain, No shoulder pain, No arm pain, No back pain, No hand pain, No leg pain, No foot pain Skin: No Rash, No Lesions, No Jaundice, No Bruising, No Other Neurologic: Reports feeling weakness, dizziness Objective vital signs Vital Sign Date Time Temp Pulse Resp B/P (MAP) Pulse Ox O2 Delivery O2 Flow Rate FiO2 07/08/24 08:00 73 18 97 Room Air* 0 21 07/08/24 08:00 98.6 115/71 (86) 98.6 115/76 (89) 126/59 (81) Total Intake and Output 07/07/24 07/07/24 07/08/24 15:00 23:00 07:00 Intake Total 200 ml Balance 200 ml medications Current Medications Medications Dose Ordered Sig/Christiano Route Start Time Stop Time Status Last Admin Dose Admin Sodium Chloride 10 ml Q8HR IV 07/07/24 22:00 07/08/24 05:44 10 ML Sodium Chloride 1,000 ml @ 75 mls/hr [id number] IV 07/07/24 21:15 07/07/24 22:00 75 MLS/HR Acetaminophen 325 mg Q4HP PRN PO 07/07/24 21:15 Ondansetron HCl 4 mg Q4HP PRN IV 07/07/24 21:15 Enoxaparin Sodium 40 mg DAILY SC 07/08/24 10:00 Nitroglycerin 0.4 mg Q5MINP PRN SL 07/07/24 21:15 Morphine Sulfate 2 mg Q30M PRN IV 07/07/24 21:15 Diagnostic Test (Pha) 1 strip ACHS 07/08/24 07:00 07/08/24 11:51 1 STRIP Insulin Human Regular HS SC 07/08/24 22:00 Insulin Human Regular AC SC 07/08/24 07:00 Dextrose 50 ml UD PRN IV 07/07/24 23:30 Ceftriaxone Sodium 50 ml @ 100 mls/hr DAILY@09 IV 07/09/24 09:00 Examination General Appearance: Cooperative. Well developed. Well nourished. NAD Head Exam: Normal inspection Neck Exam: Normal inspection. Non-tender. Normal alignment Pulmonary/Respiratory: Chest non-tender. Clear bilateral breath sounds, no crackles, no wheezing. Cardiovascular/Chest: Regular rate and rhythm. No murmurs. No JVD. Peripheral Pulses: 2+ Radial (R). 2+ Radial (L). 2+ Pedal (R). 2+ Pedal (L) Abdominal Exam: Normal bowel sounds. Soft. normal abdomen, no visible veins, Nontender. No hepatospenomegaly. No masses Ankle Exam: Negative ankle edema Lower extremities: Negative lower extremity edema Neuro/Mental Status: A&O x4. Coherent. Thoughts/Psych: Normal thought pattern. Appropriate mood and affect. Good judgement and insight Skin Exam: Normal inspection. Normal color. Warm. Dry laboratory and microbiology Laboratory Tests 07/08/24 05:46 Test 07/08/24 05:46 Range/Units Serum Glucose 47 *L 74-106 mg/dL Labs and/or images reviewed: Labs reviewed by me, Image(s) reviewed by me Problem List/Assessment/Plan Problem List/Assessment/Plan Generalized weakness - carotid doppler: Tortuous internal carotid arteries with calcified atherosclerotic changes. There are elevated peak systolic velocities in the bilateral iCAs. Further evaluation with CTA neck is recommended. - EKG: Sinus rhythm. Borderline T abnormalities, diffuse leads - ordered CTA neck Acute complicated UTI - IV NS @ 75cc/hr - IV ceftriaxone - ordered urine bacterial culture Hypokalemia. serum K 3 - replaed with IV and PO potassium Type 2 Diabetes, insulin dependent. Hb A1c 7.1% - moderate sliding scale insulin DVT prophylaxis: Levonox 40mg Goals of care: Full code, discussed for >16 minutes on 07/08/24 Plan discussed with patient Plan discussed with Dr. Knapp Plan discussed with: Patient, Other (RN) Date of Service: Jul 08, 2024 Billing Provider: ABUNDIO KNAPP MD Common Visit Codes: [id number] INP/OBS CARE(HIGH) Coding Comment Comment I saw and evaluated the patient. I reviewed the residents note and agree with findings and plan as documented in the residents note. Patient with recurrent UTI, we will discontinue JardiSAJAN Green RESIDENT Jul 08, 2024 12:52 ABUNDIO KNAPP MD Jul 08, 2024 21:09
[2024-07-08 16:00] VITALS: BP_SYST 102; BP_SYST 105; BP_SYST 96; BP_DIAS 56; BP_DIAS 63; BP_DIAS 68; PULSE 74; RESP 17; TEMP 99.4; O2SAT 92
--- NOTE | 2024-07-08 16:44 | DVHSR ---
APPROVED REPORT EXAM: Two-dimensional and M-mode echocardiogram with Doppler and color Doppler. Blood Pressure: 81/48 mmHg RISK FACTORS Height: 5'4", Weight: 139 DIMENSIONS LVDd4.9 (3.8-5.7cm)LA (2D)4.8 (1.9-4.0cm)Aortic Root3.3 (2.0-3.7cm) LVDs3.2 (2.5-4.0cm)LA (MM) (1.9-4.0cm)Aortic Cusp Exc2.0 (1.5-2.0cm) EF (%) 65.0 (55-70%)Rt. Atrium3.6 (1.9-4.0cm)Asc. Aorta3.7 cm IVSd0.9 (0.7-1.1cm)RV (D)3.5 (1.8-2.4cm) PWd0.8 (0.7-1.1cm) Mitral Valve MitralMitral Stenosis E wave0.66m/sMV Mean GR.mmHg A wave0.90m/sMV Peak GR.mmHg E/A ratio0.72D MVAcm2 DECEL [id number] 1/2 Timems Aortic Valve Aortic ValveAortic Stenosis V11.04m/Lottie Mean GR.7mmHg V21.67m/Lottie Peak GR.11mmHg LVOT Diameter2.4 (1.8-2.4cm)Doppler AVA2.82cm2 Pulmonic Valve V20.88m/s Tricuspid Valve TR Velocity2.08m/s [id number] Conclusion Normal left ventricular size and dimension. Normal left ventricular systolic function estimated ejec tion fraction 55%. There is a grade 1 diastolic dysfunction. Normal right ventricular size and dimension. Normal right ventricular systolic function. Normal biatrial size and dimension. Normal aortic valve structure and function. Normal mitral valve structure function. Normal tricuspid valve structure and function. The pulmonary valve is grossly normal. No pericardial effusion.
[2024-07-08 20:00] VITALS: PULSE 60; PULSE 79; RESP 17; O2SAT 96
[2024-07-08 21:00] VITALS: BP_SYST 101; BP_SYST 113; BP_SYST 117; BP_DIAS 63; BP_DIAS 65; BP_DIAS 70; PULSE 60; RESP 18; TEMP 98.7; O2SAT 96
[2024-07-09 01:00] VITALS: BP_SYST 103; BP_SYST 106; BP_SYST 88; BP_DIAS 57; BP_DIAS 58; PULSE 52; RESP 16; TEMP 98.4; O2SAT 95
[2024-07-09 05:00] VITALS: BP 100/53; PULSE 54; RESP 16; TEMP 98.7; O2SAT 93
[2024-07-09 06:29] LABS: Basophils # (auto) 0 10 ^3/uL (0-0.2); Basophils % (auto) 0.8 % (0.0-2.0); Eosinophils # (auto) 0.1 10 ^3/uL (0-0.8); Eosinophils % (auto) 2.9 % (0.0-7.0); Hemoglobin 11.7 g/dL (12.2-16.2); Lymphocytes # (auto) 1.5 10 ^3/uL (0.4-5.4); Nucleated Red Blood Cells % 0.1 %
[2024-07-09 06:32] LABS: Lymphocytes % (auto) 32.2 % (10.0-50.0); Mean Corpuscular Hemoglobin 33.8 pg (28.0-32.0); Mean Corpuscular Hgb Conc. 33.5 g/dL (32.0-36.0); Monocytes # (auto) 0.6 10 ^3/uL (0-1.3); Monocytes % (auto) 12.2 % (0.0-12.0); Neutrophils # (auto) 2.4 10 ^3/uL (1.6-8.6); Neutrophils % (auto) 51.9 % (37.0-80.0); Platelet Count (auto) 201 10^3/uL (140-450); Red Blood Cells 3.46 10^6/uL (4.0-5.20); Red Cell Distribution Width 13.9 % (11.8-14.3); White Blood Cell 4.6 10^3/uL (4.4-10.8)
[2024-07-09 06:38] LABS: Anion Gap 8 (5-15); Calcium 8.9 mg/dL (8.7-10.4); Carbon Dioxide 19 mmol/L (20-31); Chloride 116 mmol/L (98-107); Potassium 3.9 mmol/L (3.5-5.1); Sodium 143 mmol/L (136-145)
[2024-07-09 06:44] LABS: BUN/Creatinine Ratio 18.8 (10.0-20.0); Blood Urea Nitrogen 15 mg/dL (9-23); Glucose 229 mg/dL (74-106)
[2024-07-09 08:00] VITALS: PULSE 67; PULSE 79; RESP 18; O2SAT 98
[2024-07-09 09:11] VITALS: BP 103/61; PULSE 51; RESP 17; TEMP 98.7; O2SAT 94
[2024-07-09] MEDS: cefTRIAXone 1GM/50ML D5W 50 ML IV SCH (09:35)
--- NOTE | 2024-07-09 09:44 | DVH ---
Exam: CT CT ANGIO NECK CONTRAST INDICATION: Abnormal Carotid Doppler EXAM DATE: 07/09/2024 08:57 AM COMPARISON: None TECHNIQUE: CTA neck with intravenous contrast. 3D image postprocessing was performed on a dedicated workstation and images were used for interpretation and reporting. RADIATION DOSE: Angio: CTDIvol: 30.44 mGy, DLP: 641.85 mGy*cm FINDINGS: CTA neck: The visualized thoracic aortic arch and proximal great vessels are unremarkable. The left common, in ternal and external carotid arteries are within normal limits. The right common, internal and journeyman powerhouse operator al carotid arteries are within normal limits. The cervical segments of the right and left vertebral arteries are within normal limits. The limited visualized lung apices are clear. The surrounding so ft tissues and osseous structures are otherwise unremarkable. IMPRESSION: 1. No evidence of hemodynamically significant cervical stenosis or dissection. CAROTID STENOSIS REFERENCEDistal internal carotid artery diameter as the denominator for stenosis anisha surement:MILD = <50% stenosis.MODERATE = 50-69% stenosis.SEVERE = 70-89% stenosis.CRITICAL = 90-99% stenosis.OCCLUDED = 100% stenosis. HS:Y
[2024-07-09] MEDS ORDERED: IOHEXOL 350 MG/ML 100ML IJ ONE (09:48)
[2024-07-09 11:36] LABS: Macrocytosis Slight; Platelet Count (auto) 198 10^3/uL (140-450); Platelet Estimate Adequate
[2024-07-09 11:39] LABS: Ovalocytes FEW; Tear Drop Cells FEW
[2024-07-09 12:40] VITALS: BP 117/65; PULSE 60; RESP 16; TEMP 98.5; O2SAT 95
[2024-07-09] MEDS ORDERED: CEPH500C PO (12:45)
[2024-07-09 13:29] VITALS: BP 117/65; PULSE 60; RESP 16; TEMP 98.5; O2SAT 95
--- NOTE | 2024-07-09 15:42 | DVHDSRES ---
Discharge Summary Date of Admission Resident Creating Document: SAJAN RHODES RESIDENT Jul 07, 2024 at 21:01 Date of Discharge: Jul 09, 2024 Labs/Diagnostic Data: Laboratory Results Test 07/09/24 11:43 07/09/24 05:59 07/08/24 05:46 07/08/24 01:30 POC Glucose 311 mg/dl (70-106) White Blood Count 4.6 10^3/uL (4.4-10.8) Red Blood Count 3.46 10^6/uL (4.0-5.20) Hemoglobin 11.7 g/dL (12.2-16.2) Hematocrit 35.0 % (36.0-46.0) Mean Corpuscular Volume 101.0 fL (80.0-100.0) Mean Corpuscular Hemoglobin 33.8 pg (28.0-32.0) Mean Corpuscular Hemoglobin Concent 33.5 g/dL (32.0-36.0) Red Cell Distribution Width 13.9 % (11.8-14.3) Platelet Count 198 10^3/uL (140-450) Mean Platelet Volume 8.3 fL (6.9-10.8) Neutrophils (%) (Auto) 51.9 % (37.0-80.0) Lymphocytes (%) (Auto) 32.2 % (10.0-50.0) Monocytes (%) (Auto) 12.2 % (0.0-12.0) Eosinophils (%) (Auto) 2.9 % (0.0-7.0) Basophils (%) (Auto) 0.8 % (0.0-2.0) Neutrophils # (Auto) 2.4 10 ^3/uL (1.6-8.6) Lymphocytes # (Auto) 1.5 10 ^3/uL (0.4-5.4) Monocytes # (Auto) 0.6 10 ^3/uL (0-1.3) Eosinophils # (Auto) 0.1 10 ^3/uL (0-0.8) Basophils # (Auto) 0 10 ^3/uL (0-0.2) Nucleated Red Blood Cells 0.1 % Platelet Estimate Adequate Macrocytosis Slight Spherocytes Few Tear Drop Cells Few Ovalocytes Few [place] Cells Few Schistocytes Sodium Level 143 mmol/L (136-145) Potassium Level 3.9 mmol/L (3.5-5.1) Chloride Level 116 mmol/L (98-107) Carbon Dioxide Level 19 mmol/L (20-31) Anion Gap 8 (5-15) Blood Urea Nitrogen 15 mg/dL (9-23) Creatinine 0.80 mg/dL (0.550-1.02) Glomerular Filtration Rate Calc 81 mL/min (>90) BUN/Creatinine Ratio 18.8 (10.0-20.0) Serum Glucose 229 mg/dL (74-106) Calcium Level 8.9 mg/dL (8.7-10.4) Erythrocyte Sedimentation Rate 15 mm/hr (0-20) Hemoglobin A1c 7.1 % A1C (<5.7) Total Bilirubin 0.4 mg/dL (0.2-1.0) Aspartate Amino Transferase (AST) 12 U/L (13-40) Alanine Aminotransferase (ALT) 23 U/L (7-40) Alkaline Phosphatase 72 U/L (46-116) C-Reactive Protein High Sensitivity 3.20 mg/dL (<1.0) B-Type Natriuretic Peptide 70.81 pg/mL (0-100) Total Protein 7.3 g/dL (5.7-8.2) Albumin 4.3 g/dL (3.2-4.8) Vitamin B12 Level 695 pg/mL (211-911) Vitamin D 25-Hydroxy 40.7 ng/mL (30.0-100) Free Thyroxine (T4) Calculated 0.99 ng/dL (0.89-1.76) Free Triiodothyronine (T3) pg/mL 2.16 pg/mL (2.3-4.2) Urine Color Colorless (Yellow) Urine Clarity Turbid (Clear) Urine pH 5.5 (5.0-9.0) Urine Specific [place] 1.006 (1.001-1.035) Urine Protein Trace (Negative) Urine Ketones Negative (Negative) Urine Blood Negative /uL (Negative) Urine Nitrite Negative (Negative) Urine Bilirubin Negative (Negative) Urine Urobilinogen Normal mg/dL (Negative) Urine Leukocyte Esterase 3+ /uL (Negative) Urine RBC 3 /hpf (0 - 4) Urine WBC 96 /hpf (0 - 5) Urine Squamous Epithelial Cells Few /hpf (<5) Urine Bacteria Few /hpf (None Seen) Urine Glucose 1+ mg/dL (Normal) Urine Opiates Screen Neg (NEGATIVE) Urine Fentanyl Screen Neg (NEGATIVE) Urine Barbiturates Screen Neg (NEGATIVE) Urine Phencyclidine Screen Neg (NEGATIVE) Urine Amphetamines Screen Neg (NEGATIVE) Urine Benzodiazepines Screen Neg (NEGATIVE) Urine Cocaine Screen Neg (NEGATIVE) Urine Cannabinoids Screen Neg (NEGATIVE) Test 07/07/24 21:51 Troponin I High Sensitivity 93 ng/L (</=34) Thyroid Stimulating Hormone (TSH) 0.43 uIU/mL (0.55-4.78) Other Laboratory Tests 07/09/24 05:59 Brief Hx & Hospital Course: Patient is a 68-year-old female with past medical history of UTI, diabetes, hypertension and peripheral neuropathy, who came in due to generalized weakness along with dizziness that has been ongoing for the last 2 days. According to the patient, yesterday on 07/07/2024 she was in the restroom when she started feeling extreme weakness in bilateral upper and lower extremities along with weakness and dizziness which prevented her from getting up. Patient subsequently had to call her son to help her get up and get out of the bathroom. Patient notes that cold makes her pain worse which is intermittent in nature and cramping in character. Hospital course: Carotid Doppler showed tortuous internal carotid arteries with calcified atherosclerotic changes. There are elevated peak systolic velocities in the bilateral ICAs. Further evaluation with CTA neck is recommended. CT angiography of the neck showed no evidence of hemodynamically significant cervical stenosis or dissection. For her UTI, patient was continued on IV ceftriaxone along with IV NS at 75 cc/hour. Potassium was replaced with IV NPO potassium both after which patient reported improvement of symptoms. Patient was placed on a moderate sliding scale insulin. Patient was also noted to have macrocytosis with mild spherocytosis, without history of alcohol abuse or nutritional deficiencies. On the day of discharge, patient self-reported feeling well and better than before, had stable vital signs and appeared well. Patient also completed walking and reported no pain, dizziness or discomfort. Patient was discharged home with cephalexin 500 mg twice a day for 5 days. Her hospital course was uncomplicated. Patient was instructed to follow up with PCP in the outpatient clinic. General Appearance: Cooperative. Well developed. Well nourished. NAD Head Exam: Normal inspection Neck Exam: Normal inspection. Non-tender. Normal alignment Pulmonary/Respiratory: Chest non-tender. Clear bilateral breath sounds, no crackles, no wheezing. Cardiovascular/Chest: Regular rate and rhythm. No murmurs. No JVD. Peripheral Pulses: 2+ Radial (R). 2+ Radial (L). 2+ Pedal (R). 2+ Pedal (L) Abdominal Exam: Normal bowel sounds. Soft. normal abdomen, no visible veins, Nontender. No hepatospenomegaly. No masses Ankle Exam: Negative ankle edema Lower extremities: Negative lower extremity edema Neuro/Mental Status: A&O x4. Coherent. Thoughts/Psych: Normal thought pattern. Appropriate mood and affect. Good judgement and insight Skin Exam: Normal inspection. Normal color. Warm. Dry Operations or Procedures Exam: CT CT ANGIO NECK CONTRAST INDICATION: Abnormal Carotid Doppler EXAM DATE: 07/09/2024 08:57 AM COMPARISON: None TECHNIQUE: CTA neck with intravenous contrast. 3D image postprocessing was performed on a dedicated workstation and images were used for interpretation and reporting. RADIATION DOSE: Angio: CTDIvol: 30.44 mGy, DLP: 641.85 mGy*cm FINDINGS: CTA neck: The visualized thoracic aortic arch and proximal great vessels are unremarkable. The left common, internal and external carotid arteries are within normal limits. The right common, internal and external carotid arteries are within normal limits. The cervical segments of the right and left vertebral arteries are within normal limits. The limited visualized lung apices are clear. The surrounding soft tissues and osseous structures are otherwise unremarkable. IMPRESSION: 1. No evidence of hemodynamically significant cervical stenosis or dissection. CAROTID ARTERIAL DOPPLER CLINICAL HISTORY: DIZZINESS TECHNIQUE: Doppler study of bilateral carotid/vertebral arteries were performed. Comparison: None FINDINGS: Bilateral internal carotid arteries demonstrate tortuous . coarse with calcified atherosclerotic changes. There are elevated peak systolic velocities in the bilateral internal carotid arteries. The bilateral common carotid, external carotid arteries appear patent without hemodynamically significant stenosis. The spectral wave forms and peak systolic velocities are within normal limits. Antegrade flow is present within the vertebral arteries with appropriate velocities and waveforms. Right ICA/CCA PSV ratio = 2.0. Left ICA/CCA PSV ratio = 0.3 . IMPRESSION: 1. Tortuous internal carotid arteries with calcified atherosclerotic changes. There are elevated peak systolic velocities in the bilateral iCAs. Further evaluation with CTA neck is recommended. Condition at Discharge: Good Final Diagnosis/Problems List Generalized weakness Acute complicated UTI Hypokalemia Type 2 diabetes, insulin dependent Discharge Disposition: Home Discharge Instruct/Medications Diet: Consistent carbohydrate Activity: No Restrictions, As Tolerated Follow Up/Referral: please follow up with PCP within 1-2 weeks Medications: cephalexin 500mg twice a day for 5 days continue home medications Discharge Statement: "Patient was advised to return to the ER or call 911 if any headaches, dizziness, shortness of breath, chest pain, abdominal pain, bleeding, fevers, or worsening of medical condition. Patient was counseled about treatment plan, medications, possible side effects, patientverbalized understanding. All questions were answered to the best of my ability. This discharge took greater then 30 minutes in planning, reviewing documentation, counseling the patient, and discussing with other team members." ASSESSMENT ASSESSMENT Assessment Generalized weakness Date of Service: Jul 09, 2024 Billing Provider: ABUNDIO KNAPP MD Common Visit Codes: [id number]-[id number] DISCH DAY >30min Coding Comment Comment I saw and evaluated the patient. I reviewed the residents note and agree with findings and plan as documented in the residents note. SAJAN RHODES RESIDENT Jul 09, 2024 15:42 ABUNDIO KNAPP MD Jul 09, 2024 20:39
== END 2024-07-09 14:50 | disposition home or self-care (01) | DRG 640 ==
LOC: ER 17:07 → TELE 21:01 → TELE-WESTW 22:55
PROVIDERS: ADMIT Student in an Organized Health Care Education/Training Program; ATTEND Student in an Organized Health Care Education/Training Program
DX: E87.6 Hypokalemia (principal); I21.A1 Myocardial infarction type 2; N17.0 Acute kidney failure with tubular necrosis; N39.0 Urinary tract infection, site not specified; I10 Essential (primary) hypertension; E11.42 Type 2 diabetes mellitus with diabetic polyneuropathy; R42 Dizziness and giddiness; Z83.3 Family history of diabetes mellitus; Z98.51 Tubal ligation status; Z79.4 Long term (current) use of insulin
CPT/HCPCS: 36415; 70498; 71045; 80048; 80053; 80307; 81001; 82306; 82607; 82962; 83036; 83880; 84132; 84439; 84443; 84481; 84484; 85025; 85652; 86141; 87086; 93005; 93306; 93886; 99291; G0378; J1815; J3480

== ENCOUNTER 2024-08-06 17:37 | Emergency (ER) | payer OTHER, MEDICAID ==
[~2024-08-06] VITALS: Ht 162.6 cm; Wt 63.9 kg
[~2024-08-06 17:37] MED LIST changes: +CEPH500C PO; -CIPR250T3 PO; -EMPA1TAB3 PO; +MECL-90 PO; +METF-370 PO
--- NOTE | 2024-08-06 19:01 | DVH ---
CLINICAL INDICATION: lumbar back pain TECHNIQUE: 3 radiographic views of the lumbar spine were obtained. Comparison: None FINDINGS/IMPRESSION: There is normal alignment of the lumbar spine. No evidence of acute traumatic fractures or spondyloli sthesis. Multilevel [id number] degenerative changes. If symptoms persist, consider CT/ MRI fo r further evaluation.
[2024-08-06] MEDS ORDERED: ACE3T PO (19:27)
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
[2024-08-06 19:57] VITALS: BP 96/60; PULSE 75; RESP 16; TEMP 97.3; O2SAT 97
== END 2024-08-06 20:08 | disposition home or self-care (01) ==
LOC: ER 17:37
DX: S39.012A Strain of muscle, fascia and tendon of lower back, initial encounter (principal); I10 Essential (primary) hypertension; E11.9 Type 2 diabetes mellitus without complications; E78.5 Hyperlipidemia, unspecified; F32.A Depression, unspecified; M19.90 Unspecified osteoarthritis, unspecified site; Z98.890 Other specified postprocedural states; Z79.4 Long term (current) use of insulin; Z79.82 Long term (current) use of aspirin; Z79.84 Long term (current) use of oral hypoglycemic drugs; Z79.899 Other long term (current) drug therapy; V43.52XA Car driver injured in collision with other type car in traffic accident, initial encounter; Y93.I9 Activity, other involving external motion; Y92.89 Other specified places as the place of occurrence of the external cause; Y99.8 Other external cause status
CPT/HCPCS: 72100